=== PATIENT | male | born 1975 | race American Indian/Alaskan Native ===

== ENCOUNTER 2018-07-28 15:36 | Emergency (ER) | payer OTHER ==
--- NOTE | 2018-07-28 16:08 | Emergency Department Report ---
Blank Doc - Documentation Documentation: This is a 42-year-old male that presents with chest pain and SOB. Denies any HX of cardiac. This initial assessment/diagnostic orders/clinical plan/treatment(s) is/are subject to change based on patient's health status, clinical progression and re- assessment by fellow clinical providers in the ED. Further treatment and workup at subsequent clinical providers discretion. Patient/guardians urged not to elope from the ED as their condition may be serious if not clinically assessed and managed. Initial orders include: 1- Patient sent to [facility] for further evaluation and treatment 2- labs 3- EKG 4- CXR
--- NOTE | 2018-07-28 16:55 | Emergency Department Report ---
ED General Adult HPI - General Chief complaint: Chest Pain Stated complaint: CHEST PAIN Time Seen by Provider: 07/28/18 16:06 Source: patient Mode of arrival: Ambulatory Limitations: No Limitations - History of Present Illness Initial comments: 42 y.o. male history of smoking and history of pneumothorax presents complaining of chest pain for the past 10 days. Patient states he's had a productive cough for the past and days as well. Basically been coughing up brown phlegm. Patient denies any history of PE or DVT. Patient denies any recent long trips. Patient states he hasn't taken NyQuil and ibuprofen to alleviate his symptoms. Patient does admit to cocaine use 3 days ago but none since that time period. Patient denies any recent long trips. - Related Data Previous Rx's Medication Instructions Recorded Last Taken Type HYDROcodone/APAP 5-325 [[place] 1 each PO Q6HR PRN #10 tablet 01/05/16 Unknown Rx 5/325] Doxycycline Hyclate [Doxycycline 100 mg PO Q12HR 7 Days #14 tab 07/28/18 Unknown Rx Hyclate TAB] traMADol [Ultram] 50 mg PO Q6HR PRN #20 tablet 07/28/18 Unknown Rx Allergies Allergy/AdvReac Type Severity Reaction Status Date / Time No Known Allergies Allergy Unverified 01/03/16 11:32 ED Review of Systems ROS: Stated complaint: CHEST PAIN Other details as noted in HPI Constitutional: denies: chills, fever Eyes: denies: eye pain, eye discharge, vision change ENT: denies: ear pain, throat pain Respiratory: SOB at rest Cardiovascular: chest pain Endocrine: no symptoms reported Gastrointestinal: denies: abdominal pain, nausea, diarrhea Genitourinary: denies: urgency, dysuria Musculoskeletal: denies: back pain, joint swelling, arthralgia Skin: denies: rash, lesions Neurological: denies: headache, weakness, paresthesias Psychiatric: denies: anxiety, depression Hematological/Lymphatic: denies: easy bleeding, easy bruising ED Past Medical Hx - Past Medical History Hx Congestive Heart Failure: No Hx Diabetes: No Hx Asthma: No Hx COPD: No Additional medical history: collapsed lung - Surgical History Past Surgical History?: No - Social History Smoking Status: Current Every Day Smoker Substance Use Type: Alcohol - Medications Home Medications: Home Medications Medication Instructions Recorded Confirmed Last Taken Type HYDROcodone/APAP 5-325 [[place] 1 each PO Q6HR PRN #10 tablet 01/05/16 Unknown Rx 5/325] Doxycycline Hyclate [Doxycycline 100 mg PO Q12HR 7 Days #14 tab 07/28/18 Unknown Rx Hyclate TAB] traMADol [Ultram] 50 mg PO Q6HR PRN #20 tablet 07/28/18 Unknown Rx ED Physical Exam - General Limitations: No Limitations General appearance: alert, other (awake; uncomfortable) - Head Head exam: Present: atraumatic, normocephalic - Eye Eye exam: Present: normal appearance - ENT ENT exam: Present: mucous membranes moist - Neck Neck exam: Present: normal inspection - Respiratory Respiratory exam: Present: normal lung sounds bilaterally. Absent: respiratory distress - Cardiovascular Cardiovascular Exam: Present: regular rate, normal rhythm. Absent: systolic murmur, diastolic murmur, rubs, gallop - GI/Abdominal GI/Abdominal exam: Present: soft, normal bowel sounds - Rectal Rectal exam: Present: deferred - Extremities Exam Extremities exam: Present: normal inspection - Back Exam Back exam: Present: normal inspection - Neurological Exam Neurological exam: Present: alert, oriented X3 - Psychiatric Psychiatric exam: Present: normal affect, normal mood - Skin Skin exam: Present: warm, dry, intact, normal color. Absent: rash ED Course Vital Signs 07/28/18 07/28/18 07/28/18 16:00 16:07 17:30 Temperature 99.2 F Pulse Rate 115 H 112 H 90 Respiratory 20 27 H Rate Blood Pressure 134/90 127/87 Blood Pressure 134/90 [Left] O2 Sat by Pulse 98 97 97 Oximetry 07/28/18 07/28/18 07/28/18 17:45 18:00 18:16 Temperature Pulse Rate 86 86 91 H Respiratory 12 11 L 12 Rate Blood Pressure 134/97 134/97 134/97 Blood Pressure [Left] O2 Sat by Pulse 98 99 98 Oximetry 07/28/18 07/28/18 07/28/18 18:30 18:34 18:56 Temperature Pulse Rate 96 H 89 Respiratory 24 20 19 Rate Blood Pressure 134/97 134/97 Blood Pressure [Left] O2 Sat by Pulse 97 98 99 Oximetry 07/28/18 07/28/18 07/28/18 19:01 19:15 19:28 Temperature 98 F Pulse Rate 84 81 84 Respiratory 21 21 19 Rate Blood Pressure 134/97 136/88 Blood Pressure 136/88 [Left] O2 Sat by Pulse 97 98 98 Oximetry ED Medical Decision Making - Lab Data Result diagrams: 07/28/18 16:51 07/28/18 16:51 - EKG Data -: EKG Interpreted by Me EKG shows normal: sinus rhythm Rate: tachycardia - EKG Data Interpretation: no acute changes, other (Left anterior fascicular block) - Medical Decision Making Patient has no elevated white count or fever. Patient noted to have the presence of pneumonia on CT scan however there is no evidence of pulmonary embolism. Patient be discharged with by mouth therapy. - Differential Diagnosis STEMI; PE: Pneumonia; Pneumothorax; Arrythmia Critical care attestation.: If time is entered above; I have spent that time in minutes in the direct care of this critically ill patient, excluding procedure time. ED Disposition Clinical Impression: Chest pain, Pneumonia Disposition: - TO HOME OR SELFCARE Is pt being admited?: No Does the pt Need Aspirin: No Condition: Stable Instructions: Chest Pain (ED), Bacterial Pneumonia (ED) Prescriptions: Doxycycline Hyclate [Doxycycline Hyclate TAB] 100 mg PO Q12HR 7 Days #14 tab traMADol [Ultram] 50 mg PO Q6HR PRN #20 tablet PRN Reason: Pain Referrals: SHALINI CARREON MD [Primary Care Provider] - 3-5 Days Time of Disposition: 21:03 Print Language: ALBANIAN
[2018-07-28 17:14] LABS: Basophils % (Auto) 0.3 % (0.0-1.8); Eosinophils # (Auto) 0.1 K/mm3 (0.0-0.4); Eosinophils % (Auto) 0.8 % (0.0-4.3); Hematocrit 46.3 % (35.5-45.6); Hemoglobin 15.7 gm/dl (11.8-15.2); Lymphocytes # (Auto) 0.7 K/mm3 (1.2-5.4); Lymphocytes % (Auto) 6.6 % (13.4-35.0); Mean Corpuscular HGB Conc 34 % (32-34); Mean Corpuscular Volume 90 fl (84-94); Monocytes # (Auto) 0.6 K/mm3 (0.0-0.8); Monocytes % (Auto) 5.9 % (0.0-7.3); Platelet Count 408 K/mm3 (140-440); Red Blood Count 5.14 M/mm3 (3.65-5.03); Red Cell Distribution Width 13.4 % (13.2-15.2)
[2018-07-28 17:28] LABS: INR 1.06 (0.87-1.13)
[2018-07-28 17:29] LABS: Partial Thromboplastin Time 28.1 Sec. (24.2-36.6)
[2018-07-28 17:33] LABS: BUN/Creatinine Ratio 16; Blood Urea Nitrogen 14 mg/dL (9-20); Hemolysis Index 5
[2018-07-28] MEDS ORDERED: ULTRAM PO ONE (17:34)
--- NOTE | 2018-07-28 17:53 | XRay Report ---
PROCEDURE: XR CHEST ROUTINE 2V TECHNIQUE: PA and lateral chest radiographs were obtained. HISTORY: Chest Pain COMPARISONS: None. FINDINGS: Cardiac silhouette is not enlarged. There is a reticulonodular interstitial pattern in the lungs bilaterally somewhat more prominent in t he lung bases. This is nonspecific and could represent chronic interstitial lung disease. An acute in terstitial process such as interstitial pneumonia cannot be excluded. Clinical correlation. Compariso n to prior examinations would be most helpful in assessing for interval change. IMPRESSION: Reticulonodular interstitial pattern in the lungs bilaterally somewhat more prominent in the lung bases, nonspecific and which could be chronic. An acute interstitial process such as interst itial pneumonia cannot be excluded. Clinical correlation and radiographic follow-up recommended. Comp arison to prior examinations would be most helpful in assessing for interval change. This document is electronically signed by Marcel Saenz MD., July 28 2018 05:51:00 PM ET
--- NOTE | 2018-07-28 20:02 | Cat Scan Report ---
PROCEDURE: CT ANGIO CHEST TECHNIQUE: Computerized tomographic angiography of the chest was performed after the IV injection of iodinated nonionic contrast including image processing. The image data was postprocessed using 2-di mensional multiplanar reformatted (MPR) and 3-dimensional (MIP and/or volume rendered) techniques. Au tomated exposure control, adjustment of mA and/or kV according to patient size, or iterative reconstr uction dose optimization techniques were utilized. CT DOSE LENGTH PRODUCT: 399.9 mGycm HISTORY: chest pain FINDINGS: Contrast-enhanced CT angiography of the chest was performed following the intravenous administration of iodinated contrast. Data was reformatted into sagittal and coronal planes. These images demonstrate no CT evidence of pulmonary thromboembolic disease. There is no aortic disse ction. There is consolidation medial aspect of the right lower lobe, consistent with pneumonia. The thyroid gland is unremarkable. There is a 2 mildly enlarged right hilar nodes, 1.3 x 1.1 cm and 1.1 x 1.0 cm. There is a trace right pleural effusion. There is no pericardial effusion. In the upper abdomen the adrenal glands are within normal limits. The visualized portion of the liver and spleen are unremarkable. IMPRESSION: No CT evidence of pulmonary thromboembolic disease Right lower lobe infiltrate consistent with pneumonia This document is electronically signed by Roldan Crockett MD., July 28 2018 08:00:45 PM ET
[2018-07-28] MEDS ORDERED: VIBRAMYCIN PO ONE (20:56)
[2018-07-28 21:29] VITALS: BP 138/71
== END 2018-07-28 21:28 | disposition home or self-care (01) ==
LOC: ED 15:36
DX: J18.9 Pneumonia, unspecified organism (principal); F17.200 Nicotine dependence, unspecified, uncomplicated
CPT/HCPCS: 36415; 71046; 71275; 80048; 82550; 84484; 85025; 85610; 85730; 93005; 93010; 99285; Q9967